=== PATIENT | male | born 1985 | race Caucasian/White ===

== ENCOUNTER 2022-09-25 10:53 | Outpatient (AMB) | payer OTHER, SELFPAY ==
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
[2022-09-25 11:07] VITALS: BP 120/70; PULSE 74; RESP 18; O2SAT 97; BMI 29.5
== END 2022-09-25 11:40 | disposition home or self-care (01) ==
PROVIDERS: PCP Internal Medicine; Visit Provider Registered Nurse Emergency
DX: M96.1 Postlaminectomy syndrome, not elsewhere classified (principal); G82.20 Paraplegia, unspecified; G58.8 Other specified mononeuropathies; G89.21 Chronic pain due to trauma
CPT/HCPCS: 99204

== ENCOUNTER → 2022-09-25 10:53 | Outpatient (BNVA) | payer OTHER, SELFPAY | PROVIDERS: PCP Internal Medicine; Visit Provider Registered Nurse Emergency | DX: M96.1 Postlaminectomy syndrome, not elsewhere classified (principal); G82.20 Paraplegia, unspecified; G58.8 Other specified mononeuropathies; G89.21 Chronic pain due to trauma | CPT/HCPCS: 99202 ==

== ENCOUNTER 2022-11-08 15:15 | Outpatient (REF) | payer OTHER, SELFPAY ==
--- NOTE | ~2022-11-08 | MR_ITS ---
EXAMINATION: MR THORACIC AND LUMBAR SPINE WITHOUT CONTRAST CLINICAL INFORMATION: Post laminectomy syndrome, paraplegia. COMPARISON: None TECHNIQUE: MRI of the thoracic and lumbar spine was obtained using routine sequences without and with contrast. A total of 10 mL Gadavist was intravenously administered. FINDINGS: Thoracic spine: There is mild levoscoliotic curvature centered at the cervicothoracic junction. Instrumented fusion is seen from T5 through T10 with transpedicular screws and paired stabilization rods. There is significant susceptibility artifact emanating from the fusion construct. The T7 vertebral body demonstrates vertebral plana type deformity with complete collapse and difficult to visualize. The thoracic cord appears diffusely expanded with abnormal cystic myelomalacic change at the T8-T9 level. The cord is otherwise diminutive and volume in the upper to mid thoracic regions. No cord compression is seen. No abnormal enhancement is seen within the thoracic canal. There is no significant narrowing of the neural foramina. There is disc bulging at T10-T11 resulting in approximately moderate left-sided neural foraminal stenosis. The neural foramina are otherwise patent. The extraspinal soft tissues are grossly within normal limits. Lumbar spine: There is accentuation of the normal lumbar lordosis. There is trace retrolisthesis of L3 on L4 and L4 on L5. There is disc height loss at the L3-L4 level. No bone marrow edema is seen. The distal spinal cord appears normal. The conus medullaris terminates normally at the L1-L2 level. There is no abnormal enhancement along the cauda equina nerve roots. L1-L2: No posterior disc abnormality. No spinal canal or neural foraminal stenosis. L2-L3: No posterior disc abnormality. No spinal canal or neural foraminal stenosis. L3-L4: Disc bulging with mild facet arthropathy and prominent dorsal epidural fat resulting in approximately moderate spinal canal stenosis with left subarticular stenosis and mild narrowing of the neural foramina without foraminal nerve root compression. Mild compression of the traversing left L4 nerve root. L4-L5: Disc bulging with moderate facet arthropathy, ligamentum flavum infolding, and prominent dorsal epidural fat resulting in moderate to severe spinal canal stenosis and mild to moderate bilateral neural foraminal stenosis in addition to subarticular stenosis with compression of the traversing left more than right L5 nerve roots. L5-S1: Mild disc bulging with moderate facet arthropathy. No spinal canal or neural foraminal stenosis. MR/MR thoracic spine wo/w con IMPRESSION: THORACIC SPINE: 1. Postoperative findings related to instrumented fusion from T5 through T10. Vertebral plana type deformity seen at T7. Please confirm all vertebral body numbering prior to any anticipated interventions. A CT could better define the anatomy and can be obtained if there is uncertainty about the vertebral body numbering. 2. The thoracic cord appears diffusely expanded with abnormal cystic myelomalacic change at the T8-T9 level. The cord is otherwise diminutive in volume in the upper to mid thoracic regions. No cord compression is seen. 3. No abnormal enhancement. LUMBAR SPINE: 1. At L3-L4 there is moderate spinal canal stenosis with left subarticular stenosis and mild compression of the traversing left L4 nerve root. 2. At L4-L5 there is moderate to severe spinal canal stenosis and subarticular stenosis with compression of the traversing left more than right L5 nerve roots.
[2022-11-08] MEDS: gadobutroL 10 ML VIAL IVPUSH (17:00)
== END 2022-11-08 15:16 | disposition home or self-care (01) ==
LOC: HO.MRI 15:15
PROVIDERS: Visit Provider Registered Nurse Emergency
DX: M96.1 Postlaminectomy syndrome, not elsewhere classified (principal); G82.20 Paraplegia, unspecified; G58.8 Other specified mononeuropathies
CPT/HCPCS: 72157; 72158; A9585

== ENCOUNTER 2023-05-24 13:11 | Outpatient (AMB) | payer OTHER, SELFPAY ==
[2023-05-24 13:16] VITALS: BP 132/62; PULSE 93; RESP 18; O2SAT 100; BMI 31.2
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
== END 2023-05-24 13:43 | disposition home or self-care (01) ==
PROVIDERS: PCP Internal Medicine; Visit Provider Registered Nurse Emergency
DX: M96.1 Postlaminectomy syndrome, not elsewhere classified (principal); G82.20 Paraplegia, unspecified; G58.8 Other specified mononeuropathies; G89.21 Chronic pain due to trauma
CPT/HCPCS: 99214

== ENCOUNTER → 2023-05-24 13:11 | Outpatient (BNVA) | payer OTHER, SELFPAY | PROVIDERS: PCP Internal Medicine; Visit Provider Registered Nurse Emergency | DX: M96.1 Postlaminectomy syndrome, not elsewhere classified (principal); G82.20 Paraplegia, unspecified; G58.8 Other specified mononeuropathies; Z79.899 Other long term (current) drug therapy; G89.21 Chronic pain due to trauma | CPT/HCPCS: 99212 ==

== ENCOUNTER 2023-12-20 12:45 | Outpatient (AMB) | payer OTHER, SELFPAY ==
[2023-12-20 13:03] VITALS: BP 133/74; PULSE 73; O2SAT 99; BMI 30.5
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
== END 2023-12-20 13:19 | disposition home or self-care (01) ==
PROVIDERS: PCP Internal Medicine; Visit Provider Registered Nurse Emergency
DX: M96.1 Postlaminectomy syndrome, not elsewhere classified (principal); G82.20 Paraplegia, unspecified; G58.8 Other specified mononeuropathies; G89.21 Chronic pain due to trauma
CPT/HCPCS: 99214; G2211

== ENCOUNTER → 2023-12-20 12:45 | Outpatient (BNVA) | payer OTHER, SELFPAY | PROVIDERS: PCP Internal Medicine; Visit Provider Registered Nurse Emergency | DX: G82.20 Paraplegia, unspecified (principal); G89.21 Chronic pain due to trauma; G58.8 Other specified mononeuropathies; M96.1 Postlaminectomy syndrome, not elsewhere classified; Z99.3 Dependence on wheelchair | CPT/HCPCS: 99212 ==

== ENCOUNTER 2024-06-03 12:46 | Outpatient (AMB) | payer OTHER, SELFPAY ==
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
[2024-06-03 12:51] VITALS: BP 145/77; PULSE 111; RESP 16; O2SAT 99; BMI 30.5
--- OUTSIDE RECORDS SUMMARY | 2024-06-03 14:46 | XMS_ITS | Encounter Summary ---
Author Organization [facility] Address [address] [place] [address] Care Team Providers Care Jboss Architect Name Role Phone Anna Pulido MD Primary Care Provider [phone] Encounter Details Date Type Department Care Team (Late st Contact Info) Description 05/12/2024 Lab Requisition [facility] - Main Lab [address] [facility] [place] [phone] Tracy Hines PA [address] [facility] [address] [place], [place] [id number] Urinary tract infection, site not specified Social History Tobacco Use Types Packs/Day Years Used Date Smoking Tobacco: Never Smokeless Tobacco: Never Alcohol Use Standard Drinks/Week Comments Yes 0 (1 standard drink = 0.6 oz pur e alcohol) Sex and Gender Information Value Date Recorded Sex Assigned at Not on file Legal Sex Male 2:34 PM EST Gender Identity Not on file Sexual Orientation Not on file documented as of this encounter Plan of Treatment Upcoming Encounters Date Type Department Care Team (Late st Contact Info) Description 06/30/2024 11:00 AM EDT Office Visit Internal Medicine - [place] [address] [place] [phone] Anna Pulido MD [address] [facility] [address] [place] [address] documented as of this encounter Procedures Procedure Name Priority Date/Time Associated Diagnosis Comments CULTURE URINE Routine 05/12/2024 11:00 AM EDT Urinary tract infection, site not specified documented in this encounter Results * (ABNORMAL) Culture urine (05/12/2024 11:00 AM EDT) Culture, Urine 10,000-49,000 CFU/mL Pseudomonas aeruginosa(A) JOSE 05/15/2024 7:57 AM EDT [facility] Comment: This is an edited result. Previous organism was Gram negative bacilli on 05/13/2024 at 0848 EDT. Culture, Urine 10,000-49,000 CFU/mL Enterococcus faecalis(A) JOSE 05/15/2024 7:57 AM EDT [facility] Comment: The organism value for this result has been updated. These results have been appended to the previously preliminary verified report. Edited result: Previously reported as Enterococcus species on 05/14/2024 at 1030 EDT. Urine Indwelling urinary catheter / Unknown 05/12/2024 11:00 AM EDT 05/12/2024 2:38 PM EDT Narrative Organism Antibiotic Method Susceptibility Pseudomonas aeruginosa Piperacillin/Tazobactam JOSE 8 ug/ml: Susceptible Pseudomonas aeruginosa Ceftazidime JOSE 2 ug/ml: Susceptible Pseudomonas aeruginosa Meropenem JOSE 1 ug/ml: Susceptible Pseudomonas aeruginosa Amikacin JOSE 4 ug/ml: Susceptible Pseudomonas aeruginosa Ciprofloxacin JOSE >=4 ug/ml: Resistant Pseudomonas aeruginosa Levofloxacin JOSE >=8 ug/ml: Resistant Pseudomonas aeruginosa Amikacin DISK DIFFUSION Pseudomonas aeruginosa Cefepime DISK DIFFUSION Susceptible Pseudomonas aeruginosa Ceftazidime DISK DIFFUSION Pseudomonas aeruginosa Ciprofloxacin DISK DIFFUSION Pseudomonas aeruginosa Levofloxacin DISK DIFFUSION Pseudomonas aeruginosa Meropenem DISK DIFFUSION Pseudomonas aeruginosa Piperacillin/Tazobactam DISK DI FFUSION Pseudomonas aeruginosa Tobramycin DISK DIFFUSION Enterococcus faecalis Benzylpenicillin JOSE 2 ug/ml: Susceptible Enterococcus faecalis Ampicillin JOSE <=2 ug/ml: Susceptible Enterococcus faecalis Ciprofloxacin JOSE 2 ug/ml: Intermediate Enterococcus faecalis Levofloxacin JOSE 2 ug/ml: Susceptible Enterococcus faecalis Linezolid JOSE 2 ug/ml: Susceptible Enterococcus faecalis Vancomycin JOSE 1 ug/ml: Susceptible Enterococcus faecalis Tetracycline JOSE >=16 ug/ml: Resistant Enterococcus faecalis Nitrofurantoin JOSE <=16 ug/ml: Susceptible us Tracy [facility] MICROBIOLOGY - GENERAL ORD ERABLES Final Result [facility] [address] [place] [address], documented in this encounter Visit Diagnoses Diagnosis Urinary tract infection, site not specified documented in this encounter Care Teams Jboss Architect Relationship Specialty Start Date End Date Anna Pulido MD [address] [facility] [address] [place] [address] PCP - General Internal Medicine 07/14/21 documented as of this encounter
--- OUTSIDE RECORDS SUMMARY | 2024-06-03 14:46 | XMS_ITS | Clinical Summary ---
Author Organization [facility] Address [address] [place] [id number] Care Team Providers Care Mail Order Clerk Name Role Phone Elizabeth Francis MD Primary Care Provider + Allergies No known active allergies Medications traMADol (ULTRAM) 50 MG tablet TAKE 1 TABLET BY MOUTH EVERY 4 HOURS NEEDED FOR PAIN 12/06/2020 Active benzonatate (TESSALON) 100 MG capsule TAKE 1 CAPSULE BY MOUTH THREE TIMES A DAY FOR 5 DAYS NEEDED FOR COUGH 11/16/2020 Active pregabalin (LYRICA) 150 MG capsule Take 150 mg by mouth 2 (two) times a day 10/11/2020 Active valACYclovir (VALTREX) 500 MG tablet Take 500 mg by mouth if needed 10/12/2020 Active Active Problems Problem Noted Date Diagnosed Date Lower urinary tract infectious disease Paraplegia, not otherwise specified 12/18/2020 COVID-19 12/18/2020 Acute nontraumatic kidney injury 12/18/2020 Chronic pain due to trauma 10/13/2017 Alkaline phosphatase above reference range 07/07 Social History Tobacco Use Types Packs/Day Years Used Date Smoking Tobacco: Never Smokeless Tobacco: Never Alcohol Use Standard Drinks/Week Comments Not Currently 0 (1 standard drink = 0.6 oz pur e alcohol) Sex and Gender Information Value Date Recorded Sex Assigned at Not on file Legal Sex Male 2:37 PM EDT Gender Identity Not on file Sexual Orientation Not on file Last Filed Vital Signs Vital Sign Reading Time Taken Comments Blood Pressure 120/74 12/19/2020 9:54 AM EDT Pulse 107 12/19/2020 9:54 AM EDT Temperature - - Respiratory Rate - - Oxygen Saturation 99% 12/19/2020 9:54 AM EDT Inhaled Oxygen Concentration - - Weight 102 kg (225 lb) 12/19/2020 9:54 AM EDT Height - - Body Mass Index - - Plan of Treatment Health Maintenance Due Date Last Done Comments Hepatitis B Vaccine (1 of 3 - 19+ 3-dose series) 2004 07/14/2015, 10/20/2014 Influenza Vaccine (Season Ended) 2024 Pneumococcal Vaccine: Pediatrics (0 to 5 Years) and At-Risk Patients (6 to 64 Years) Aged Out 09/01/2020, 07/04/2018, 10/20/2014 No longer eligible based on patient's age to complete this topic Insurance [facility] ([id number]) [place] [id number] [facility] ([id number]) Care Teams Mail Order Clerk Relationship Specialty Start Date End Date Elizabeth Francis MD PCP - General Internal Medicine 12/19/20
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
--- OUTSIDE RECORDS SUMMARY | 2024-06-03 14:47 | XMS_ITS | Data Portability ---
Author Organization [employer], [facility], [facility] Address [address] [place] [phone] Care Team Providers Care Cost Analyst Name Role Phone HIM CCA OTHER [facility] Primary Care Provi quinton Assessment Encounter Date Assessment Date Assessment LastModified by Organization Details LastModified Time 11/19/2022 11/19/2022 37 YOM with chronic indwelling stark with UTI symptoms. Urinalysis with LE and nitrite positive. Pt given Cefpodoxime 200mg and prescription sent to pharmacy Culture sent [email or web address] Not available 11/19/2022 12:13:43 07/15/2023 07/15/2023 I provided real -time medical direction via phone for this encounter, and was available for additional phone based assistance as needed. I have reviewed and agree with the Assessment and Plan as documented by the Cold Working Supervisor. We discussed the diagnostic uncertainty of home visits and the risk associated with this. In this case the patient and I felt this to be an acceptable and reasonable amount of risk given the benefit of avoiding an ED visit. The patient given the opportunity to ask questions. Advised if develops CP/severe SOB/turning blue/severe abdominal or flank pain uncontrolled n/v/d / AMS/ syncope/ hi fever to call 911- verbalized understanding of instruction [email or web address] Not available 07/15/2023 13:40:53 Plan of Treatment Reminders Order Date Submit Date Provider Last Modified By Organization Details Last Modified Time Details Appointments None recorded. Lab culture, urine 2024 025 [facility], [address] [place] [address], Hua B, [place], [address], 06:26:41 urinalysis, dipstick 2024 025 [facility], [address] [place] [address], [address] 5 21:55:21 culture, urine 2023 024 KADEN [facility] (Centralized Electronic Ordering - All Locations), Patient Can Go To The Location Of Their Choice, [id number] 4 20:06:00 urinalysis, dipstick 2023 024 [email or web address] [facility], [address] [place] [address], [address] 4 15:35:36 culture, urine 2023 024 KADEN [facility] (Centralized Electronic Ordering - All Locations), Patient Can Go To The Location Of Their Choice, [id number] 4 12:06:21 urinalysis, dipstick 2023 024 [email or web address] 0 [facility], [address] [place] [address], [address] 4 13:35:40 culture, urine 2023 024 [email or web address] [facility] (Centralized Electronic Ordering - All Locations), Patient Can Go To The Location Of Their Choice, [address] 4 09:53:06 culture, urine 2022 023 KADEN [facility] (Centralized Electronic Ordering - All Locations), Patient Can Go To The Location Of Their Choice, [facility] [place] 3 00:18:12 Referral None recorded. Procedures None recorded. Surgeries None recorded. Imaging None recorded. Medication Orders levofloxaci n 750 mg tablet 2024 025 [facility] #[id number], [address], [place], [id number], 5 19:16:59 ciprofloxac in 500 mg tablet 2024 025 [facility] #32379, [address], [place], [id number], 5 19:17:08 cefpodoxime 200 mg tablet 2023 024 [facility] #60986, [address], [place], [id number], 4 15:31:08 cefpodoxime 200 mg tablet 2023 024 [facility] #47862, [address], [place], [id number], 4 13:40:11 cefpodoxime 200 mg tablet 2023 024 [facility] #60601, [address], [place], [id number], 4 16:55:34 cefpodoxime 200 mg tablet 2022 023 [facility] #12017, [address], [place], [id number], 3 12:12:14 Patient TargetsNo targets recorded. Patient InstructionsNo instructions recorded. Reason for Referral None Reported. Results Created Date Observation Date Name Description Value Unit Range Abnormal Flag Note LastModifiedBy Organization Detail LastModifiedTime 11/20/1911/19/2022 URINE CULTU RE specimen description URINE Not Available [facility] ([facility] Order[facility] - All Locations) Patient Can Go To The Location Of Their Choice, [id number] 11/22/2022 10:38:56 11/20/1911/19/2022 URINE CULTU RE special requests NONE Not Available [facility] ([facility] Ordering - All Locations) Patient Can Go To The Location Of Their Choice, 11/22/2022 10:38:56 11/20/1911/22/2022 URINE CULTU RE culture abnormal >100, 000 COL/M L KLEBS IELLA PNEUM ONIAE This isola te was ident ified using Maldi -TOF syste m These AST resul ts were perfo rmed on the Vitek 2 ID and AST syste m 10-50 ,000 COL/M L PSEUD OMONA S AERUG INOSA This isola te was ident ified using Maldi -TOF syste m These AST resul ts were perfo rmed on the Vitek 2 ID and AST syste m Not Available [facility] (Centralized Electronic Ordering - All Locations) Patient Can Go To The Location Of Their Choice, 11/22/2022 10:38:56 11/20/1911/22/2022 URINE CULTU RE report status FINAL 2022 Not Available [facility] (Centralized Electronic Ordering - All Locations) Patient Can Go To The Location Of Their Choice, 11/22/2022 10:38:56 11/20/1911/22/2022 URINE CULTU RE organism ORGAN ISM >100, 000 COL/M L KLEBS IELLA PNEUM ONIAE This isola te was ident ified using Maldi -TOF syste m These AST resul ts were perfo rmed on the Vitek 2 ID and AST syste m Not Available [facility] (Centralized Electronic Ordering - All Locations) Patient Can Go To The Location Of Their Choice, 11/22/2022 10:38:56 11/20/1911/22/2022 URINE CULTU RE method METHOD MIN. INHIB. CONC. (MCG/M L) Not Available [facility] (Centralized Electronic Ordering - All Locations) Patient Can Go To The Location Of Their Choice, 11/22/2022 10:38:56 11/20/1911/22/2022 URINE CULTU RE ampicillin AMPICI LLIN RESIST ANT resistant Not Available [facility] (Centralized Electronic Ordering - All Locations) Patient Can Go To The Location Of Their Choice, 11/22/2022 10:38:56 11/20/1911/22/2022 URINE CULTU RE ampicillin/s ulbactam AMPICI LLIN/S ULBACT AM RESIST ANT resistant Not Available [facility] (Centralized Electronic Ordering - All Locations) Patient Can Go To The Location Of Their Choice, 11/22/2022 10:38:56 11/20/1911/22/2022 URINE CULTU RE cefepime CEFEPI ME SUSCEP TIBLE susceptib le Not Available [facility] (Centralized Electronic Ordering - All Locations) Patient Can Go To The Location Of Their Choice, 11/22/2022 10:38:56 11/20/1911/22/2022 URINE CULTU RE ceftriaxone CEFTRI AXONE SUSCEP TIBLE susceptib le Not Available [facility] (Centralized Electronic Ordering - All Locations) Patient Can Go To The Location Of Their Choice, 11/22/2022 10:38:56 11/20/1911/22/2022 URINE CULTU RE ciprofloxaci n CIPROF LOXACI N RESIST ANT resistant Not Available [facility] (Centralized Electronic Ordering - All Locations) Patient Can Go To The Location Of Their Choice, 11/22/2022 10:38:56 11/20/1911/22/2022 URINE CULTU RE ertapenem ERTAPE NEM SUSCEP TIBLE susceptib le Not Available [facility] (Centralized Electronic Ordering - All Locations) Patient Can Go To The Location Of Their Choice, 11/22/2022 10:38:56 11/20/1911/22/2022 URINE CULTU RE gentamicin GENTAM ICIN SUSCEP TIBLE susceptib le Not Available [facility] (Centralized Electronic Ordering - All Locations) Patient Can Go To The Location Of Their Choice, 11/22/2022 10:38:56 11/20/19 23 11/22/2022 URINE CULTU RE levofloxacin LEVOFL OXACIN RESIST ANT resistant Not Available [facility] (Centralized Electronic Ordering - All Locations) Patient Can Go To The Location Of Their Choice, 11/22/2022 10:38:56 11/20/1911/22/2022 URINE CULTU RE nitrofuranto in NITROF URANTO IN INTERM EDIATE intermedi ate Not Available [facility] (Centralized Electronic Ordering - All Locations) Patient Can Go To The Location Of Their Choice, 11/22/2022 10:38:56 11/20/19 23 11/22/2022 URINE CULTU RE piperacillin /tazobactam PIPERA CILLIN /TAZOB AC SUSCEP TIBLE susceptib le Not Available [facility] (Centralized Electronic Ordering - All Locations) Patient Can Go To The Location Of Their Choice, 11/22/2022 10:38:56 11/20/19 23 11/22/2022 URINE CULTU RE trimeth/sulf amethox TRIMET H/SULF AMETHO X RESIST ANT resistant Not Available [facility] (Centralized Electronic Ordering - All Locations) Patient Can Go To The Location Of Their Choice, 11/22/2022 10:38:56 11/20/1911/22/2022 URINE CULTU RE organism ORGAN ISM 10-50 ,000 COL/M L PSEUD OMONA S AERUG INOSA This isola te was ident ified using Maldi -TOF syste m These AST resul ts were perfo rmed on the Vitek 2 ID and AST syste m Not Available [facility] (Centralized Electronic Ordering - All Locations) Patient Can Go To The Location Of Their Choice, 11/22/2022 10:38:56 11/20/1911/22/2022 URINE CULTU RE method METHOD MIN. INHIB. CONC. (MCG/M L) Not Available [facility] (Centralized Electronic Ordering - All Locations) Patient Can Go To The Location Of Their Choice, 11/22/2022 10:38:56 11/20/1911/22/2022 URINE CULTU RE ceftazidime CEFTAZ IDIME SUSCEP TIBLE susceptib le Not Available [facility] (Centralized Electronic Ordering - All Locations) Patient Can Go To The Location Of Their Choice, 11/22/2022 10:38:56 11/20/1911/22/2022 URINE CULTU RE ciprofloxaci n CIPROF LOXACI N RESIST ANT resistant Not Available [facility] (Centralized Electronic Ordering - All Locations) Patient Can Go To The Location Of Their Choice, 11/22/2022 10:38:56 11/20/1911/22/2022 URINE CULTU RE levofloxacin LEVOFL OXACIN RESIST ANT resistant Not Available [facility] (Centralized Electronic Ordering - All Locations) Patient Can Go To The Location Of Their Choice, 11/22/2022 10:38:56 11/20/1911/22/2022 URINE CULTU RE meropenem MEROPE NEM SUSCEP TIBLE susceptib le Not Available [facility] (Centralized Electronic Ordering - All Locations) Patient Can Go To The Location Of Their Choice, 11/22/2022 10:38:56 11/20/1911/22/2022 URINE CULTU RE piperacillin /tazobactam PIPERA CILLIN /TAZOB AC SUSCEP TIBLE susceptib le Not Available [facility] (Centralized Electronic Ordering - All Locations) Patient Can Go To The Location Of Their Choice, 11/22/2022 10:38:56 11/20/19 23 11/22/2022 URINE CULTU RE tobramycin TOBRAM YCIN SUSCEP TIBLE susceptib le Not Available [facility] (Centralized Electronic Ordering - All Locations) Patient Can Go To The Location Of Their Choice, [id number] 11/22/2022 10:38:56 07/15/19 24 07/18/2023 URINE CULTU RE,CO MPREH ENSIV E urine culture,comp rehensive Final report Not Available [facility] ([facility]) [address] [place], [address], 07/18/2023 12:06:21 07/15/19 24 07/18/2023 URINE CULTU RE,CO MPREH ENSIV E result 1 COMMEN T More than 3 organ isms recov ered, none predo minan t. Pleas e submi t anoth er cultu re if clini adriana indic ated. Great er than 100,0 00 colon y formi ng units per mL Not Available [facility] ([facility]) [address] [facility], [place], [address], 07/18/2023 12:06:21 07/15/19 24 07/15/2023 urina lysis , dipst ick Appearance Slight ly cloudy Not Available [facility] [address] [place] [address], [phone] 07/15/2023 13:34:48 07/15/19 24 07/15/2023 urina lysis , dipst ick Color Pale yellow Not Available [facility] [address] [place] [address], [phone] 07/15/2023 13:34:48 11/21/19 24 11/25/2023 URINE CULTU RE,CO MPREH ENSIV E urine culture,comp rehensive Final report abnormal Not Available [facility] ([facility]) [address] [place], [address], 11/25/2023 14:06:19 11/21/19 24 11/25/2023 URINE CULTU RE,CO MPREH ENSIV E result 1 Harveyat nelson vogt cens abnormal Great er than 100,0 00 colon y formi ng units per mL Not Available [facility] ([facility]) [address] [facility] [place], [address], 11/25/2023 14:06:19 11/21/19 24 11/25/2023 URINE CULTU RE,CO MPREH ENSIV E antimicrobia l susceptibili ty Commen t S = Susce ptibl e; I = Inter media te; R = Resis tant P = Posit osmin; N = Negat osmin MICS are expre ssed in micro grams per mL Antib iotic RSLT# 1 RSLT# 2 RSLT# 3 RSLT# 4 Amoxi cilli n/Cla vulan ic Acid R Cefaz pinky R Cefep basia S Ceftr iaxon e S Cefur oxime R Cipro floxa yefri S Ertap enem S Genta micin S Levof loxac in S Merop enem S Nitro furan toin R Tetra cycli ne S Tobra mycin S Trime thopr im/Hercules lfa S Not Available [facility] ([facility]) [address] [facility] [place], [address], 11/25/2023 14:06:19 11/21/19 24 11/21/2023 urina lysis , dipst ick Leukocytes +++ Not Available [facility] [address] [place] [address], [phone] 11/21/2023 15:29:34 11/21/19 24 11/21/2023 urina lysis , dipst ick Nitrite positi ve Not Available [facility] [address] [place] [address], [phone] 11/21/2023 15:29:34 11/21/19 24 11/21/2023 urina lysis , dipst ick Urobilinogen 0.2 Not Available [facility] [address] [place] [address], [phone] 11/21/2023 15:29:34 11/21/19 24 11/21/2023 urina lysis , dipst ick Protein Negati ve Not Available [facility] [address] [place] [address], [phone] 11/21/2023 15:29:34 11/21/19 24 11/21/2023 urina lysis , dipst ick pH 5.0 Not Available [facility] [address] [place] [address], [phone] 11/21/2023 15:29:34 11/21/19 24 11/21/2023 urina lysis , dipst ick Blood Positi ve Not Available [facility] [address] [place] [address], [phone] 11/21/2023 15:29:34 11/21/19 24 11/21/2023 urina lysis , dipst ick Specific Manti 1.000 Not Available [facility] [address] [place] [address], [phone] 11/21/2023 15:29:34 11/21/19 24 11/21/2023 urina lysis , dipst ick Ketone Negati ve Not Available [facility] [address] [place] [address], [address] [place] [address] 11/21/2023 15:29:34 11/21/19 24 11/21/2023 urina lysis , dipst ick Bilirubin Negati ve Not Available [facility] [address] [place] [address], [address] [place] [address] 11/21/2023 15:29:34 11/21/19 24 11/21/2023 urina lysis , dipst ick Glucose Negati ve Not Available [facility] [address] [place] [address], [phone] 11/21/2023 15:29:34 11/21/19 24 11/21/2023 urina lysis , dipst ick Appearance Cloudy Not Available [facility] [address] [place] [address], [phone] 11/21/2023 15:29:34 11/21/19 24 11/21/2023 urina lysis , dipst ick Color Yellow Not Available [facility] [address] [place] [address], [address] [place] [address] 11/21/2023 15:29:34 03/27/19 25 04/01/2024 CULTU RE, URINE , ROUTI NE culture, urine, routine SEE NOTE abnormal CULTU RE, URINE , ROUTI NE Micro Numbe r: [id number] Test Statu s: Final Speci men Sourc e: Not given Speci men Quali ty: Adequ ate Resul t: 50,00 0-100 ,000 CFU/m L of Pseud omona s aerug inosa Great er than 100,0 00 CFU/m L of Enter ococc us fajoanna vazquez Ps.ae rugin zhen E.megan calis ----- ----- ----- - ----- ----- ----- - INT JOSE INT JOSE AMIKA YEFRI S 8 * AMPIC ILLIN * S <=2 CEFTA ZIDIM E S 4 * CIPRO FLOXA YEFRI R >=4 * GENTA MICIN S 4 * IMIPE NEM S 2 * LEVOF LOXAC IN R >=8 * MEROP ENEM S 1 * NITRO FURAN TOIN * S <=16 PIP/T AZOBA CTAM S 8 * VANCO MYCIN * S 1 S = Susce ptibl e I = Inter media te R = Resis tant NS = Not susce ptibl e SDD = Susce ptibl e Dose Depen dent * = Not Teste d NR = Not Repor ruma NN = See Thera py Comme nts Not Available [facility] [address], [place], [address], 04/01/2024 07:11:19 Result Notes None recorded. Problems Name Problem SNOMED Code Status Onset Date Resolution Date Notes Provider Name and Address Organization Details Recorded Time Urine sent for culture [id number] Active 022 Jose Luis Cabrales MD [address] [place] [address],[address] [place] [address], [place], [address] , [employer] 13:34:21 Problem Notes None recorded. Medical Equipment None Reported. Allergies No known drug allergies Medications Name Sig Start Date Stop Date Status Note LastModified by Organization Details LastModified Time senna tablets TAKE 1 TABLET BY MOUTH DAILY active Not Available Not Available Not Available senna tab 8.6mg active Not Available Not Available Not Available doxycycline hyclate 100 mg capsule TAKE 1 CAPSULE BY MOUTH TWICE DAILY active Not Available Not Available No t Available polyethylene glycol 3350 17 gram oral powder packet MIX AND DRINK 1 PACKET BY MOUTH EVERY DAY active Not Available Not Available No t Available cefpodoxime 200 mg tablet TAKE 1 TABLET BY MOUTH EVERY 12 HOURS FOR 10 DAYS active Not Available Not Available Not Available fosfomycin tromethamine 3 gram oral packet DISSOLVE 1 PACKET IN 4 TO 8 OUNCES OF WATER TODAY active Not Available Not Available No t Available senna 8.6 mg tablet TAKE 1 TABLET BY MOUTH DAILY active Not Available Not Available Not Available fluconazole 200 mg tablet TAKE 1 TABLET BY MOUTH EVERY DAY active Not Available Not Available No t Available ciprofloxaci n 250 mg tablet active Not Available Not Available Not Available valacyclovir 500 mg tablet TAKE 1 TABLET BY MOUTH THREE TIMES DAILY active Not Available Not Available Not Available ciprofloxaci n 500 mg tablet TAKE 1 TABLET BY MOUTH EVERY 12 HOURS FOR 7 DAYS active Not Available Not Available N ot Available sulfamethoxa zole 800 mg-trimethop rim 160 mg tablet TAKE 1 TABLET BY MOUTH EVERY 12 HOURS FOR 7 DAYS active Not Available Not Available N ot Available tramadol 50 mg tablet TAKE 1 TABLET BY MOUTH EVERY 6 HOURS NEEDED FOR PAIN active Not Available Not Available No t Available methenamine hippurate 1 gram tablet TAKE 1 TABLET BY MOUTH DAILY active Not Available Not Available Not Available levofloxacin 500 mg tablet TAKE 1 TABLET BY MOUTH EVERY 24 HOURS FOR 7 DAYS active Not Available Not Available N ot Available levofloxacin 750 mg tablet Take 1 tablet every day by oral route for 1 day. 2024 active Not Available Not Available Not Avai lable cefdinir 300 mg capsule TAKE ONE CAPSULE BY MOUTH EVERY 12 HOURS FOR 7 DAYS active Not Available Not Available N ot Available amoxicillin 875 mg-potassium clavulanate 125 mg tablet TAKE 1 TABLET BY MOUTH TWICE DAILY FOR 10 DAYS active Not Available Not Available No t Available pregabalin 150 mg capsule TAKE 1 CAPSULE BY MOUTH TWICE DAILY active Not Available Not Available No t Available M[employer]axNOW COVID-19 Ag Self Test kit TEST DIRECTED TODAY active Not Available Not Available No t Available OneLAX Bisacodyl 10 mg rectal suppository UNWRAP AND INSERT 1 SUPPOSITORY RECTALLY DAILY NEEDED FOR CONSTIPATIO N active Not Available Not Available No t Available Klayesta 100,000 unit/gram topical powder APPLY TWICE DAILY TO BILATERAL GROIN active Not Available Not Available No t Available Vitals Date Recorded Oxygen saturation Oxygen saturation in Arterial blood by Pulse oximetry Heart rate Body temperature Respiratory rate Systolic blood pressure Diastolic blood pressure Provider Name and Address Organization Details Last Updated DateTime 3 100 % 100 % 70 /min 97.3 [degF] 16 /min 116 mm[Hg] 69 mm[Hg] Not Available [employer] [facility] 3 12:11:09 Date Recorded Oxygen saturation Oxygen saturation in Arterial blood by Pulse oximetry Body temperature Heart rate Respiratory rate Systolic blood pressure Diastolic blood pressure Provider Name and Address Organization Details Last Updated DateTime 4 98 % 98 % 97.9 [degF] 80 /min 16 /min 132 mm[Hg] 78 mm[Hg] Not Available [employer] [facility] [employer] 4 16:38:13 Date Recorded Oxygen saturation Oxygen saturation in Arterial blood by Pulse oximetry Body temperature Heart rate Respiratory rate Systolic blood pressure Diastolic blood pressure Provider Name and Address Organization Details Last Updated DateTime 4 99 % 99 % 97.4 [degF] 84 /min 16 /min 124 mm[Hg] 79 mm[Hg] Not Available [employer] [facility] [employer] 4 13:33:37 Date Recorded Heart rate Body weight Respiratory rate Oxygen saturation Oxygen saturation in Arterial blood by Pulse oximetry Body temperature Systolic blood pressure Diastolic blood pressure Provider Name and Address Organization Details Last Updated DateTime 4 72 /min 678753. 2 g 16 /min 98 % 98 % 98.2 [degF] 142 mm[Hg] 88 mm[Hg] Not Available [employer] [facility] [employer] 4 15:27:36 Date Recorded Oxygen saturation Oxygen saturation in Arterial blood by Pulse oximetry Heart rate Respiratory rate Body temperature Body weight Systolic blood pressure Diastolic blood pressure Provider Name and Address Organization Details Last Updated DateTime 5 97 % 97 % 84 /min 16 /min 97.5 [degF] 998642. 2 g 124 mm[Hg] 76 mm[Hg] Not Available [employer] 5 19:12:55 Social History None recorded. Functional Status None recorded. Mental Status None recorded. Family History Nothing Reported. Medical History No medical history recorded. Past Encounters Encounter ID Performer Location Encounter Start Date Encounter Closed Date Diagnosis/Indication Diagnosis SNOMED-CT Code Diagnosis ICD10 Code Diagnosis Note [id number] Jose Luis Cabrales MD [facility] [address] [place] [phone] 01/08/2022 13:25:42 01/09/2022 13:00:30 Acute urinary tract infection [id number] N39.0 This 36-year-ol d male with quadripleg ia and an indwelling Stark catheter has had symptoms of a possible UTI for several days. His U/A suggested a possible UTI. I ordered a U/C to be sent to [facility] and I ordered Bactrim DS bid for 5 days. He will follow-up with his PCP. The patient agreed with this plan. [id number] Cortney Sawant MD [facility] - [facility] [address] [place] [phone] 03/20/2022 17:20:04 03/22/2022 10:08:26 Catheter-associated urinary tract infection [id number] B99.9 [id number],[facility] [id number] Johan Fitzpatrick MD [facility] - [facility] [address] [place], [place] [phone] 07/05/2022 14:57:58 07/05/2022 15:26:55 Acute cystitis [id number] N30.00 36yo man with neurogenic bladder and history of frequent UTIs presents with dysuria / typical symptoms. UA positive. He has responded to bactrim in the past including last [facility] visit. Rx'ed Bactrim again[place]. [id number] Stu Guajardo MD [facility] [address] [place] [phone] 11/19/2022 12:11:07 11/20/2022 11:40:31 Urinary symptoms [id number] R39.9 [id number] Jose Luis Cabrales MD [facility] - [facility] [address] [place] [phone] 06/04/2023 16:38:07 06/05/2023 13:37:44 Acute urinary tract infection [id number] N39.0 This 36-year-ol d male with quadripleg ia and an indwelling Stark catheter has frequent UTI's. Today his U/A was positive and he feels a bit off. I ordered a U/C and treatment with cefpodoxin e 200 mg bid for seven days. He will follow-up with his PCP. The patient agreed with this plan. [id number] Christi Green MD [facility] - [facility] [address] [place] [phone] 07/15/2023 13:33:32 07/16/2023 17:28:49 Urinary symptoms [id number] R39.9 The urine specimen did not result from the 06/03 visit and the patient reports cefpodoxim e relieved his symptoms but after stopping the med( 7 D RX) his symptoms came back shortly thereafter . On record review the last urine culture result we have is from 11/19/2022 and the patient grew out Klebsiella and Pseudomona s. They were both MDRO's sensitive only to parenteral medication -the Klebsiella was ceftriaxon e and cefepime sensitive and the Pseudomona s was ceftazidim e sensitive, hence the patient being treated with cephalospo rins. Explained this to the patient where he is symptomati c and has an indwelling Stark with leukocytes in his urine that I would treat him for with a longer courseI offered ceftriaxon e but the patient declined. He is aware to call us if not improving. Advised we would call once the urine culture resulted. I suggested that he stay well-hydra ruma and follow-up with his PCP this week. Red flags reviewed by the medic [id number] SHELLY HICKS MD [facility] [address] [place] [phone] 11/21/2023 15:27:33 11/21/2023 23:20:37 Urinary symptoms [id number] R39.9 Evaluation in the field was performed by my credit and loan collections supervisor colleague, as noted above, I provided real-time direction and supervisio n for this visit. The evaluation revealed a 38-year-ol d paraplegic male with a suprapubic tube in place, presenting with complaints of foul-smell ing urine and bladder pain since yesterday. He denies fever, chills, nausea, vomiting, or diarrhea but complains of back pain.Per chart review, his last positive urine culture with us was on 11/19/2022. Preliminar y results showed >100K Klebsiella and 10-50K Pseudomona s, but the final result showed >100K Klebsiella , an MDRO sensitive only to ceftriaxon e and cefepime. His last urine culture from 07/14 showed no growth. Vital signs stable and the patient was afebrile.T he exam revealed no CVA tenderness .UA showed ++ leukocytes , nitrites, and blood.Peter rgies were reviewed. Impression :UTI Plan:-The patient refused IV or IM ceftriaxon e.-A prescripti on for Cefpodoxim e 200 mg BID for 10 days was sent to his pharmacy.- The patient was advised to drink plenty of fluids and complete the full 10-day course of antibiotic s.-A urine culture was sent to [facility]. Results will be followed up.-Red flags were discussed with the patient. Primary care, consider__ _ Dispositio n:We discussed the diagnostic uncertaint y of home visits and the risk associated with this. In this case, the patient and I felt this to be an acceptable and reasonable amount of risk given the benefit of avoiding an ED visit. We discussed the need to seek care urgently/e mergently in the setting of any new or worsening serious symptoms, particular ly fever, chills, CP, SOB, nausea, vomiting, diarrhea, weakness, dizziness , worsening back pain or any other concerns. [id number] SHELLY HICKS MD Main - [facility] [address] [place] [phone] 03/27/2024 19:12:49 03/31/2024 16:04:09 Urinary symptoms [id number] R39.9 Evaluation in the field was performed by my credit and loan collections supervisor colleague, as noted above, I provided real-time direction and supervisio n for this visit. The evaluation revealed a 38-year-ol d male with paraplegia and a suprapubic tube in place, presenting with complaints of malodorous urine for the past 2 days, along with sediment and flank pain. He denies blood in the urine, fever, chills, nausea, vomiting, or abdominal pain. The last stark change occurred [facility] 3 weeks ago.Per chart review, his most recent positive urine culture, dated 11/21/2023, grew Serratia, which was sensitive to fluoroquin olones and ceftriaxon e. The patient was treated with cefpodoxim e at that visit but reports that it was not effective. Started taking Uqora today and has been drinking plenty of fluids Vital signs stable and the patient was afebrile.T he exam revealed no CVA tenderness .UA showed ++ leukocytes , and blood.Peter rgies were reviewed. Impression :UTI Plan:-Levo floxacin 750 mg PO was administer ed. A prescripti on for ciprofloxa yefri 500 mg BID was sent to the patient's pharmacy.- The patient was advised to drink plenty of fluids and to complete the full 10-day course of antibiotic s.-A urine culture was sent to [facility] for analysis. Results will be followed up.-Red flags were discussed with the patient. Primary care, consider__ _ Dispositio n:We discussed the diagnostic uncertaint y of home visits and the risk associated with this. In this case, the patient and I felt this to be an acceptable and reasonable amount of risk given the benefit of avoiding an ED visit. We discussed the need to seek care urgently/e mergently in the setting of any new or worsening serious symptoms, particular ly fever, chills, CP, SOB, nausea, vomiting, diarrhea, weakness, dizziness , worsening back pain or any other concerns. Health Concerns Section Related Observation LastModified by Organization Detai ls LastModified Time None Recorded Concern Status LastModified by Organization Details LastModified Time None Recorded Advance Directives Directive None Recorded Payers Encounter Date Sequence Insurance Name Policy Number Policy Henry Covered Member ID Henry Member ID Guarantor Name 11/19/2022 1 [facility] DOS ON OR AFTER 2022 - DUAL ELIGIBLE - [employer] OPTIONS AND ONE CARE (MEDICARE REPLACEMENT/ADV ANTAGE - HMO) Sebas Escobedo [id number] Sebas Escobedo 06/04/[address] [facility] - DOS ON OR AFTER 2022 - DUAL ELIGIBLE - [employer]CI OPTIONS AND ONE CARE (MEDICARE REPLACEMENT/ADV ANTAGE - HMO) Sebas Escobedo [id number] Sebas Escobedo 07/15/2023 1 [employer] [facility] ALLI[employer] - DOS ON OR AFTER 2022 - DUAL ELIGIBLE - FCI OPTIONS AND ONE CARE (MEDICARE REPLACEMENT/ADV ANTAGE - HMO) Sebas Escobedo [id number] Sebas Escobedo 11/21/[address] [facility] [employer] - DOS ON OR AFTER 2022 - DUAL ELIGIBLE - FCI OPTIONS AND ONE CARE (MEDICARE REPLACEMENT/ADV ANTAGE - HMO) Sebas Escobedo [id number] Sebas Escobedo 03/27/2024 1 [facility] [employer] - DOS ON OR AFTER 2022 - DUAL ELIGIBLE - FCI OPTIONS AND ONE CARE (MEDICARE REPLACEMENT/ADV ANTAGE - HMO) Sebas Escobedo [id number] Sebas Escobedo Notes Date Note Type Note Provider Name and Address Organization Details Recorded Time 11/19/2022 text/html [facility] Nursing Assessment: Reason For Request: UTI>strong odor from urine>slight bladder pain>urine is dark + cloudy>denies frequency, denies burning>symptoms going on 3 to 4 days. Chief Complaints: UTI/Pyelonephritis PMH: Para or Quadraplegia Allergies: No Known Comments: Member calling in to place a referral, identified via /name. Member who is paraplegic with an indwelling stark. Per member urine is dark and cloudy, +malodor, has some right sided flank pain, denies fever/chills. Member would like to be evaluated. Stu Guajardo MD [address] [place] [address],[address], [place], [phone], [employer] 11/19/2022 12:16:07 06/04/2023 text/html [facility] Nurse Triage Notes (Alivia Burgess): Reason For Request: UTI symptoms Chief Complaints: UTI/Pyelonephritis PMH: Para or Quadraplegia Allergies: Unknown Comments: hx of UTI- c/o bladder pain, dark urine, has a suprapubic catheter, change monthly and 2 weeks changed it Denies fever/chills Last UTI- 3 months ago verified address/phone/ [facility] ALIA Cabrales MD [address] [place] [address],[address], [place], [phone], [employer] 06/04/2023 16:45:42 07/15/2023 text/html CRC Nurse Triage Notes (Isabel Barclay): Reason For Request: UTI Chief Complaints: UTI/Pyelonephritis PMH: Para or Quadraplegia Allergies: No Known Comments: Member calling in to place a referral, identified via name and . Member who is a paraplegic with a 2 day history of UTI symptoms. Member with chronic indwelling stark. Per member urine is cloudy, +mucous and sediment in bag, +foul odor and mild back discomfort. Denies fever/chills, no n/v. Member would like to be evaluated. Cold Working Supervisor POC Test Results from [facility] - ALS Urine Dipstick (1) [13:07] Urine leukocytes: 3+ TONG Urine nitrites: - NIT Urine urobilinogen: - URO Urine protein: 1+ PRO Urine pH: 6.5 pH Urine blood: trace BLO Urine specific gravity: 1.005 SG Urine ketones: - KET Urine bilirubin: - NURYS Urine glucose: - GLU .................... .................... .................... .................... .................... .................... .................... . Cold Working Supervisor Note From [facility]: Pt with chronic stark reports five days of flank pain and cloudy, malodorous urine. Pt denies hematuria, f/n/v/d. Pt sts last UTI was on 06/03, treated with cefpodoxime which resolved sx while taking but sx returned shortly after finishing it. Pt is alert, NAD. VSS. Afebrile. Non focal neuro exam. Lungs CTA. Benign ABD exam. No CVA tenderness. UA suggestive of infection. UC sent to [facility]. Pt declined ceftriaxone injection. Pt instructed to begin rx deanne, stay well hydrated, f/u with PCP and to seek emergent medical care for new or worsening sx, which are reviewed with him. .................... .................... .................... .................... .................... .................... .................... . Disposition: Fulfilled Christi Green MD [address] [facility],[address], [place], [phone], [email or web address] 07/15/2023 14:06:35 11/21/2023 text/html CRC Nurse Triage Notes (Kermit Fischer): Reason For Request: Pt reporting a UTI>strong odor>bladder pain Chief Complaints: UTI/Pyelonephritis PMH: Para or Quadraplegia Allergies: Unknown Comments: Candy Maker verified the member's name//address and phone number. Mbr calling reporting concern for UTI. Mbr reports having a suprapubic catheter in place. Mbr reports foul smelling urine & pain in bladder since yesterday. Education provided on the response time and the member was advised to monitor reported s/s and seek emergency treatment if needed -Kelly Fischer RN Cold Working Supervisor Organization Information for [employer] [facility] Legal Name: [facility] Address: [address] [place] [address], [place] [address], [employer] Tailer: Edward Lanier MD CLIA No.: [id number] Cold Working Supervisor POC Test Results from [employer] Urine Dipstick (15:31:17) Urine leukocytes: 500+++ TONG Urine nitrites: + NIT Urine urobilinogen: 0.2(3.5) URO Urine protein: NR Urine pH: 5 pH Urine blood: + BLO Urine specific gravity: 1.000 SG Urine ketones: NR Urine bilirubin: NR Urine glucose: NR .................... .................... .................... .................... .................... .................... .................... . Cold Working Supervisor Note From [facility] Cortes: Pt co lower back pain, since yesterday. Pt has stark cath. Pt sts gets uti often and usually starts with lower back pain for him. Pt denies painful urination, abdominal pain flank pain or fever. Pt denies visible blood in urine, cp sob NVD. Baseline vitals assessed WNL, cva area palpated no tenderness or pain. Abdomen benign. Urine dip POs for tong nit and bld. Urine slightly cloudy and yellow in color. Afebrile. [facility] contacted and Cefpodoxime RX called in for 10 day course. Pt advised to finish course. Pt education on signs indicating the ER. Pt advised to follow up with pcp if symptoms continue. Culture to lab steve. .................... .................... .................... .................... .................... .................... .................... . Disposition: Fulfilled SHELLY HICKS MD [address] [place] [address],[address], [place], [phone], [employer] 11/21/2023 15:53:38 03/27/2024 text/html CRC Nurse Triage Notes (Isabel Barclay - RN): Reason For Request: Pt reporting UTI Denies: Unable to void greater than 5 hours Erection that will not go away after 2 hours Fall or trauma that results in urinary incontinence in the setting of pain Fall or injury that results in incontinence in the absence of pain Lower back pain either unilateral or bilateral, unable to void, painful urination -hematuria Chief Complaints: Urinary symptoms PMH: Para or Quadriplegia PMH Reviewed at 03/27/2024 - 17:05 Allergies Reviewed at 03/27/2024 - 17:05 Comments: Patient calling in to place a referral, identified via name and . Patient with an indwelling stark catheter due to a neurogenic bladder. He reports malodorous urine x2 day, +sediment and flank pain. Denies any blood, no fever/chills, no nausea/vomiting, no abdominal pain. Last stark change was about 3 weeks ago. Cold Working Supervisor Organization Information for Denver Cortes Business Legal Name: [facility] Address: [address] [place] [address], [place] [address], [employer] Tailer: Edward WINTERS No.: [id number] Cold Working Supervisor POC Test Results from [facility] Cortes Urine Dipstick (19:07:14) Urine leukocytes: 70+ TONG Urine nitrites: NR Urine urobilinogen: 0.2 URO Urine protein: NR Urine pH: 5 pH Urine blood: ++ BLO Urine specific gravity: 1.000 SG Urine ketones: NR Urine bilirubin: NR Urine glucose: NR .................... .................... .................... .................... .................... .................... .................... . Cold Working Supervisor Note From [facility] Cortes: PT co lower abdominal discomfort and odor. Pt has frequent UTI's and sts he feels one coming on. Pt tried new product to help flush his bladder and pt sts its giving some relief. pt drinking lots of water. Pt denies painful urination. Pt has cath in place, Is due for change next week, Pt goes to facility to have changed monthly, Pt denies flank pain, Fever, SOB, CP, NVD or confusion, Baseline vitals assessed, WNL. Afebrile, abdomen soft non tender, Urine dip pos for LUE NIT and BLD. Urine diluted and clear yellow in color, C contacted and 750mg leve given PO, right med date dose and route. RX called in for cipro. Pt education on signs indicating the ER, Pt advised to follow up with PCP or urologist. Culture to [facility]. .................... .................... .................... .................... .................... .................... .................... . [facility] Consulted: Shelly Hicks .................... .................... .................... .................... .................... .................... .................... . Disposition: Fulfilled SHELLY HICKS MD [address] [facility],[address], [place], [phone], [employer] 03/28/2024 01:28:55
== END 2024-06-03 13:07 | disposition home or self-care (01) ==
LOC: HO.PMC 12:47
PROVIDERS: PCP Internal Medicine; Visit Provider Registered Nurse Emergency
DX: M96.1 Postlaminectomy syndrome, not elsewhere classified (principal); G82.20 Paraplegia, unspecified; G58.8 Other specified mononeuropathies; G89.21 Chronic pain due to trauma
CPT/HCPCS: 99213; G2211

== ENCOUNTER → 2024-06-03 12:46 | Outpatient (BNVA) | payer OTHER, SELFPAY | PROVIDERS: PCP Internal Medicine; Visit Provider Registered Nurse Emergency | DX: M96.1 Postlaminectomy syndrome, not elsewhere classified (principal); G82.20 Paraplegia, unspecified; G58.8 Other specified mononeuropathies; G89.21 Chronic pain due to trauma | CPT/HCPCS: 99212 ==

== ENCOUNTER 2024-12-10 14:21 | Outpatient (AMB) | payer OTHER, SELFPAY ==
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
[2024-12-10 14:28] VITALS: BP 119/69; PULSE 94; O2SAT 100; BMI 25.5
--- OUTSIDE RECORDS SUMMARY | 2024-12-10 18:06 | XMS_ITS | Encounter Summary ---
Author Organization [facility] Address [address] [place] [address] Care Team Providers Care Poultry Offal Worker Name Role Phone Anna Pulido MD Primary Care Provider [phone] Encounter Details Date Type Department Care Team (Late st Contact Info) Description 05/12/2024 Lab Requisition [facility] - Main Lab [address] [facility] [place] [phone] Tracy Hines PA [address] [facility] [address] [place], [place] [id number] Urinary tract infection, site not specified Social History Tobacco Use Types Packs/Day Years Used Date Smoking Tobacco: Never Smokeless Tobacco: Never Alcohol Use Standard Drinks/Week Comments Yes 0 (1 standard drink = 0.6 oz pur e alcohol) Sex and Gender Information Value Date Recorded Sex Assigned at Male 06/08/2024 12:52 AM EDT Legal Sex Male 2:34 PM EST Gender Identity Choose not to disclose 12:52 AM EDT Sexual Orientation Choose not to disclose 2024 12:52 AM EDT documented as of this encounter Plan of Treatment Not on file documented as of this encounter Procedures Procedure Name Priority Date/Time Associated Diagnosis Comments CULTURE URINE Routine 05/12/2024 11:00 AM EDT Urinary tract infection, site not specified documented in this encounter Results * (ABNORMAL) Culture urine (05/12/2024 11:00 AM EDT) Culture, Urine 10,000-49,000 CFU/mL Pseudomonas aeruginosa(A) JOSE 05/15/2024 7:57 AM EDT [facility] Comment: This is an edited result. Previous organism was Gram negative bacilli on 05/13/2024 at 0848 EDT. Culture, Urine 10,000-49,000 CFU/mL Enterococcus faecalis(A) JOSE 05/15/2024 7:57 AM EDT [facility] Comment: The organism value for [...] MICROBIOLOGY - GENERAL ORD ERABLES Final Result [facility] [address] [place] [address], documented in this encounter Visit Diagnoses Diagnosis Urinary tract infection, site not specified documented in this encounter Care Teams Poultry Offal Worker Relationship Specialty Start Date End Date Anna Pulido MD [address] [phone] PCP - General Internal Medicine 07/14/21 documented as of this encounter
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
--- OUTSIDE RECORDS SUMMARY | 2024-12-10 18:06 | XMS_ITS | Encounter Summary ---
[facility] [address] [place] [address] Care Team Providers Care Script Writer Name Role Phone nAna Pulido MD Primary Care Provider Reason for Visit * Reason Onset Date Comments Fax joan 11/18/2024 Encounter Details Date Type Department Care Team ([facility] st Contact Info) Description 11/18/2024 Telephone Internal Medicine - [place] [address] [facility] [address] [place] [phone] Anna Pulido MD [address] [facility] [address] [place] [phone] Social History Tobacco Use Types Packs/Day Years [...] AM EDT documented as of this encounter Progress Notes * Claudia Houston MA - 11/18/2024 1:41 PM EDT Faxed * Kayley Flores - 11/18/2024 10:36 AM EDT [facility] called and requested last office visit notes including patients weight. Please advise Cb# [phone] documented in this encounter Plan of Treatment Not on file documented as of this encounter Visit Diagnoses Not on filedocumented in this encounter Care Teams Script Writer Relationship Specialty Start Date End Date Anna Pulido MD [address] [place] [phone] PCP - General Internal Medicine 07/14/21 documented as of this encounter
--- OUTSIDE RECORDS SUMMARY | 2024-12-10 18:06 | XMS_ITS | Encounter Summary ---
Author Organization [facility] Address [address] [place] [address] Care Team Providers Care Guitar Repair Technician Name Role Phone Anna Pulido MD Primary Care Provider [phone] Encounter Details Date Type Department Care Team (Late st Contact Info) Description 10/05/2024 Lab Requisition [facility] - Main Lab [address] [facility] [place] [phone] Jadiel Mata PA [address] [place] [phone] Acute cystitis without hematuria Social History Tobacco Use Types Packs/Day Years [...] Date/Time Associated Diagnosis Comments CULTURE URINE Routine 10/05/2024 12:00 AM EDT Acute cystitis without hematuria documented in this encounter Results * Culture urine (10/05/2024 12:00 AM EDT) Culture, Urine 50,000-99,000 CFU/mL Mixed bacterial morphotypes present suggestive of possible contamination during collection. Suggest appropriate recollection if clinically indicated. 10/06/2024 11:48 AM EDT [facility] Urine Urine specimen obtained by clean catch procedure / Unknown 10/05/2024 10/05/2024 5:49 PM EDT us Jadiel PITTS LAB MICROBIOLOGY - GE NERAL ORDERABLES Final Result [facility] [address] [place] [address], documented in this encounter Visit Diagnoses Diagnosis Acute cystitis without hematuria documented in this encounter Care Teams Guitar Repair Technician Relationship Specialty Start Date End Date Anna Pulido MD [address] [phone] PCP - General Internal Medicine 07/14/21 documented as of this encounter
--- OUTSIDE RECORDS SUMMARY | 2024-12-10 18:06 | XMS_ITS | Encounter Summary ---
Author Organization [facility] Address [address] [place] [address] Care Team Providers Care Esthetician Makeup Artist Name Role Phone Anna Pulido MD Primary Care Provider [phone] Encounter Details Date Type Department Care Team (Late st Contact Info) Description 06/09/2024 Lab Requisition [facility] - Main Lab [address] [facility] [place] [address] Ilir Charles, HONG [address] [place] [phone] Urinary tract infection, site not specified Social [...] Date/Time Associated Diagnosis Comments CULTURE URINE Routine 06/09/2024 2:15 PM EDT Urinary tract infection, site not specified documented in this encounter Results * (ABNORMAL) Culture urine (06/09/2024 2:15 PM EDT) Culture, Urine >100,000 CFU/mL Pseudomonas aeruginosa(A) JOSE 06/14/2024 9:58 AM EDT [facility] Comment: This is an edited result. Previous organism was Gram negative bacilli on 06/11/2024 at 1013 EDT. Culture, Urine 10,000-49,000 CFU/mL Enterococcus faecalis(A) JOSE 06/14/2024 9:58 AM EDT [facility] Comment: The organism value for this result has been updated. These results have been appended to the previously preliminary verified report. Edited result: Previously reported as Enterococcus species on 06/13/2024 at 0918 EDT. Urine Indwelling urinary catheter / Unknown 06/09/2024 2:15 PM EDT 06/09/2024 6:27 PM EDT Narrative Organism Antibiotic Method Susceptibility Pseudomonas aeruginosa Piperacillin/Tazobactam JOSE 8 ug/ml: Susceptible Pseudomonas aeruginosa Ceftazidime JOSE 2 ug/ml: Susceptible Pseudomonas aeruginosa Meropenem JOSE 1 ug/ml: Susceptible Pseudomonas aeruginosa Amikacin JOSE 8 ug/ml: Susceptible Pseudomonas aeruginosa Ciprofloxacin JSOE >=4 ug/ml: Resistant Pseudomonas aeruginosa Levofloxacin JOSE >=8 ug/ml: Resistant Pseudomonas aeruginosa Cefepime DISK DIFFUSION Susceptible Enterococcus faecalis Benzylpenicillin JOSE 2 ug/ml: Susceptible Enterococcus faecalis Ampicillin JOSE <=2 ug/ml: Susceptible Enterococcus faecalis Ciprofloxacin JOSE 2 ug/ml: Intermediate Enterococcus faecalis Levofloxacin JOSE 2 ug/ml: Susceptible Enterococcus faecalis Vancomycin JOSE 1 ug/ml: Susceptible Enterococcus faecalis Tetracycline JOSE >=16 ug/ml: Resistant Enterococcus faecalis Nitrofurantoin JOSE <=16 ug/ml: Susceptible us Ilir R Araceli PA LAB MICROBIOLOGY - GENERAL ORD ERABLES Final Result [facility] [address] [place] [address], documented in this encounter Visit Diagnoses Diagnosis Urinary tract infection, site not specified documented in this encounter Care Teams Esthetician Makeup Artist Relationship Specialty Start Date End Date Anna Pulido MD [address] [phone] PCP - General Internal Medicine 5/20/22 documented as of this encounter
--- OUTSIDE RECORDS SUMMARY | 2024-12-10 18:06 | XMS_ITS | Continuity of Care Document ---
Author Name instED, Medical Address [address] [place] [id number] Organization Unknown Address [address] [place] [address] Medications No known medications Problems No known problems
--- OUTSIDE RECORDS SUMMARY | 2024-12-10 18:06 | XMS_ITS | Encounter Summary ---
Author Organization [facility] Address [address] [place] [address] Encounters * CPT with Medical [facility] at [facility] on 2024-09-25 { reasonForRequest : UTI , patientReports : Frequent and increased urination with flank pain , denies :[ Unable to void greater than 5 hours", Erection that will not go away after 2 hours , Fall or trauma that results in urinary incontinence in the setting of pain , Fall or injury that results in incontinence in the absence of pain , Lower back pain either unilateral or bilateral, unable to void, painful urination -hematuria , Painful urination , Painful urination with or withoutfever , Inability to fully empty bladder ], chiefComplaints : UrinarySymptoms , pmh : Para or Quadriplegia , allergies : No Known Drug Allergies , otherAllergies : , painAssessment : &quot ;, visitOutcome : , additionalComments : 38 y.o male complains of Urinary Symptoms - 1 week ago\n\nPt reports feeling unwell with UTI symptoms - Suprapubic catheter in placed - Urinary odor - Urinary sediment - Subjective fever - bladder spasm - Lower back pain\n\nSuprapubic catheter was changed 2 weeks ago - Cardozo drainage bag changed 1 week ago\n\nWellness check requested \n\n\nI provided information on the mobile health provider response time and advised the patient and/or caregiver to monitor reported signs and symptoms. I discussed the warning signs ofwhen to seek emergency care. } Dispatched to the above address for a 38 y/m with a cc of possible uti. Proper ppe was worn throughout the call. Upon arrival: Pt AOx4 in a wheelchair greeted [facility] and gave a verbal report. Pt stated that he is quadriplegic, and and has a possible UTI. Pt stated he has a suprapubic catheter and over the past week he has been noticing white sediment in the tube/foul smell to the urine/cloudiness in the urine/feeling more sick/tired. Pt stated that his catheter was changed 2 weeks ago and the symptoms started about a week ago. Pt stated that he gets UTI almost every month. Pt also noted that he has some minor pain to his lower back right side (was noted to be slightly tender). Pt stated that he would like [facility] to prescribe him antibiotics. Pt denied to any other cc. AOx4 - Airway: Patent - Breathing: equal chest rise and fall - LS: clear - Skin: pale/cool/diaphoretic - Pupils: PERRL - - Lower extremity: no edema noted . Head to toe body assessment: (-) DCAPBTLS.ABD: soft, non tender. Pt denied to headache/abd pain/dizziness/nausea/vomiting/blood in urine/difficulty urinating/fever/diarrhea. HEENT. skin in tact with no deformity, discoloration, or inflammation. Pupils were equal and reactive to light bilaterally. Eyes tracking normally to six cardinal points of gaze. Nose and mouth were unobstructed. Trachea midline, jugular veins were nondistended in seated position. Face symmetrical . Patient denied changes to vision or hearing and denied double vision. Tongue and uvula midline with palate raises symmetrically. [facility]: gave orders to for an urine dip test/ urine culture to be sent out (successfully done). [facility] prescribed antibiotic to pt pharmacy, and first dose of Bactrim given po ([facility] orders). Red flags were given. MIH clear. All times approximate. ORAL_MEDICATION, EKG, POC_BLOODWORK, GLUCOSE Written by Medical instED on 2024-09-25
--- OUTSIDE RECORDS SUMMARY | 2024-12-10 18:06 | XMS_ITS | Encounter Summary ---
Author Organization Alexandra [facility] Address [address] [place] [address] Care Team Providers Care Concrete Form Setter Name Role Phone Anna Pulido MD Primary Care Provider [phone] Encounter Details Date Type Department Care Team ([facility] st Contact Info) Description 10/16/2024 Telephone Internal Medicine - [place] [address] [facility] [address] [place] [address] Anna Pulido MD [address] [facility] [address] [place] [address] Social History Tobacco Use Types Packs/Day Years [...] AM EDT documented as of this encounter Functional Status * Calculated C-SSRS Risk Score (Lifetime/Recent) Answer Date of Assessment Author No Risk Indicated 10/30/2024 4:39 PM KATIET Christi Nieves RN * [place] Suicide Severity Rating Scale (Screener/Recent Self-Report) Question Answer Date of Assessment Author 1. Wish to be (Past 1 Month) No 025 4:39 PM EDT Christi Nieves RN 2. Non-Specific Active Suici giovanni Thoughts (Past 1 Month) No 10/30/2024 4:39 PM EDT Hayley Nieves, RN 6. Suicidal Behavior (Lifetime) No 5 4:39 PM EDT Christi Nieves, RN documented as of this encounter Progress Notes * Kiya Madrigal - 12/10/2024 1:39 PM EDT Hector Huizarby from [employer] is calling, Wants us to send the PT evaluation referral for patient to receive Rewalk to [facility] at [address] [place] [address]. F# [phone] * Anayeli Timmons MA - 10/21/2024 12:55 PM EDT Faxed * Anayeli Timmons MA - 10/20/2024 4:17 PM EDT Spoke with Kayla, informed me Andrew is the welfare case worker for the patient. They faxed our office a written order for a Re-Walk and needs CAMILLE. Order emailed and printed Placed in providers folder for signature. * Anayeli Timmons MA - 10/20/2024 9:47 AM EDT Please advise. * Anna Pulido MD - 10/16/2024 1:46 PM EDT Pt is wheel chair bound, Want to get REWALK. HE NEEDS TO DO pt FOR THIS, HE IS WORKING WITH Kayla FOR THIS PLS CONTACT Kayla FOR GETTING NECESSARY PAPERWOK AND ALSO ABOUT WHERE TO SEND HIM FOR pt. Kayla--[phone] documented in this encounter Plan of Treatment Not on file documented as of this encounter Visit Diagnoses Not on filedocumented in this encounter Care Teams Concrete Form Setter Relationship Specialty Start Date End Date Anna Pulido MD [address] [phone] PCP - General Internal Medicine 07/14/21 documented as of this encounter
--- OUTSIDE RECORDS SUMMARY | 2024-12-10 18:06 | XMS_ITS | Encounter Summary ---
Author Organization [facility] Address [address] [place] [address] Care Team Providers Care Meteorologist Liaison Name Role Phone Anna Pulido MD Primary Care Provider [phone] Encounter Details Date Type Department Care Team ([facility] st Contact Info) Description 11/19/2024 Telephone Internal Medicine - [place] [address] [facility] [address] [place] [address] Anna Pulido MD [address] [facility] [address] [place] [address] Social History Tobacco Use Types [...] Progress Notes * Kiya Madrigal - 12/10/2024 1:37 PM EDT Hector Cardenas is calling back from [email or web address], she is faxing over now an addendum to the 10/16/24 progress notes for PCP to review and sign. Please advise? * Anayeli Timmons MA - 11/30/2024 11:11 AM EDT Weight updated and faxed * Anan Pulido MD - 11/29/2024 7:34 PM EDT Can you show me tomorrow how to do it?/ * Anayeli Timmons MA - 11/27/2024 1:29 PM EDT The weight is correct under additional documentation, but in the visit note, visit vitals is 225 lbs for wt. That is what we need to be updated for insurance. * Anna Pulido MD - 11/27/2024 12:10 PM EDT It was 188 lb on 10/16/2024 visit note * Anayeli Timmons MA - 11/26/2024 3:57 PM EDT , can you addendum the office visit and update the visit vitals. Patient's correct weight is 188 lbs. The is required for his ReWalk DME * Anayeli Timmons MA - 11/26/2024 3:48 PM EDT Nurse visit note with documented weight faxed. * Christi Carcamo - 11/26/2024 2:47 PM EDT Patients weight was given verbally at 10/16 appt. When he went for the weight check at the nurse visit in [place], he was weighed and his weight was 188lbs. * Anayeli Timmons MA - 11/25/2024 3:41 PM EDT Please advise, patient's weight is below weight limit for Re-Walk. * Kiya Madrigal - 11/19/2024 3:37 PM EDT Hector Cardenas from [employer], called regarding patients medical certification specialist: They received 10/16/24 notes that the patients weight was 225 llbs According to 11/16/24 clinical weight check, patient's weight is 188 lbs. The weight limit for the Wewalk Exoskeleton is 220 lbs Please fax recent office visit notes with current weight to [facility] documented in this encounter Plan of Treatment Not on file documented as of this encounter Visit Diagnoses Not on filedocumented in this encounter Care Teams Meteorologist Liaison Relationship Specialty Start Date End Date Anna Pulido MD [address] [phone] PCP - General Internal Medicine 07/14/21 documented as of this encounter
--- OUTSIDE RECORDS SUMMARY | 2024-12-10 18:06 | XMS_ITS | Encounter Summary ---
Author Organization [facility]andra [facility] Address [address] [place] [address] Care Team Providers Care Fruit And Vegetable Inspector Name Role Phone Anna Pulido MD Primary Care Provider [phone] Encounter Details Date Type Department Care Team (Late st Contact Info) Description 07/09/[address] [facility] - Main Lab [address] [facility] [place] [address] Asad Esqueda, HONG [address] [place] [address] Urinary tract infection, site not specified Social [...] Date/Time Associated Diagnosis Comments CULTURE URINE Routine 07/09/2024 12:00 AM EDT Urinary tract infection, site not specified documented in this encounter Results * (ABNORMAL) Culture urine (07/09/2024 12:00 AM EDT) Culture, Urine 10,000-49,000 CFU/mL Enterococcus faecalis(A) JOSE 07/13/2024 9:41 AM EDT [facility] Comment: The organism value for this result has been updated. These results have been appended to the previously preliminary verified report. Edited result: Previously reported as Enterococcus species on 07/11/2024 at 1138 EDT. Culture, Urine 10,000-49,000 CFU/mL Pseudomonas aeruginosa(A) JOSE 07/13/2024 9:41 AM EDT [facility] Comment: The organism value for this result has been updated. These results have been appended to the previously preliminary verified report. This is an edited result. Previous organism was Gram negative bacilli on 07/12/2024 at 0812 EDT. Urine Indwelling urinary catheter / Unknown 07/09/2024 07/09/2024 12:44 PM EDT Narrative Organism Antibiotic Method Susceptibility Enterococcus faecalis Benzylpenicillin JOSE 2 ug/ml: Susceptible Enterococcus faecalis Ampicillin JOSE <=2 ug/ml: Susceptible Enterococcus faecalis Ciprofloxacin JOSE 2 ug/ml: Intermediate Enterococcus faecalis Levofloxacin JOSE 2 ug/ml: Susceptible Enterococcus faecalis Linezolid JOSE 2 ug/ml: Susceptible Enterococcus faecalis Vancomycin JOSE 1 ug/ml: Susceptible Enterococcus faecalis Tetracycline JOSE >=16 ug/ml: Resistant Enterococcus faecalis Nitrofurantoin JOSE <=16 ug/ml: Susceptible Pseudomonas aeruginosa Piperacillin/Tazobactam JOSE 8 ug/ml: Susceptible Pseudomonas aeruginosa Meropenem JOSE 1 ug/ml: Susceptible Pseudomonas aeruginosa Amikacin JOSE 4 ug/ml: Susceptible Pseudomonas aeruginosa Ciprofloxacin JOSE >=4 ug/ml: Resistant Pseudomonas aeruginosa Levofloxacin JOSE >=8 ug/ml: Resistant Pseudomonas aeruginosa Cefepime DISK DIFFUSION Susceptible Pseudomonas aeruginosa Ceftazidime DISK DIFFUSION Susceptible [facility] LAB MICROBIOLOGY - GENERAL ORDE SAMEERA Final Result [facility] [address] [place] [address], documented in this encounter Visit Diagnoses Diagnosis Urinary tract infection, site not specified documented in this encounter Care Teams Fruit And Vegetable Inspector Relationship Specialty Start Date End Date Anna Pulido MD [address] [phone] PCP - General Internal Medicine 07/14/21 documented as of this encounter
== END 2024-12-10 14:54 | disposition home or self-care (01) ==
PROVIDERS: PCP Internal Medicine; Visit Provider Registered Nurse Emergency
DX: M96.1 Postlaminectomy syndrome, not elsewhere classified (principal); G82.20 Paraplegia, unspecified; G58.8 Other specified mononeuropathies; G89.21 Chronic pain due to trauma
CPT/HCPCS: 99213; G2211

== ENCOUNTER → 2024-12-10 14:21 | Outpatient (BNVA) | payer OTHER, SELFPAY | PROVIDERS: PCP Internal Medicine; Visit Provider Registered Nurse Emergency | DX: M96.1 Postlaminectomy syndrome, not elsewhere classified (principal); G82.20 Paraplegia, unspecified; G58.8 Other specified mononeuropathies; G89.21 Chronic pain due to trauma | CPT/HCPCS: 99212 ==